=== PATIENT | female | born 1950 | race Caucasian/White ===

== ENCOUNTER 2022-01-22 22:03 | Inpatient (IN) | payer MEDICARE, MEDICAID ==
[~2022-01-22] VITALS: Ht 160 cm; Wt 49.9 kg
[2022-01-22] MEDS ORDERED: SODIUM CHLORIDE 0.9% 1,000 ML IV ONE (23:15)
[2022-01-22 23:49] LABS: HEMOGLOBIN. 7.7 g/dL (12.0-16.0); MEAN CORPUSCULAR HEMOGLOBIN 29.8 pg (28.0-32.0); PLATELET 79 x1000/uL (130-400); RED BLOOD CELL COUNT 2.59 mill/uL (4.2-5.4); RED CELL DISTRIBUTION WIDTH 17.6 % (11.6-14.6)
[2022-01-22 23:55] LABS: CHLORIDE 100 mEq/L (98-107)
[2022-01-22 23:57] LABS: INR 1.7; PROTHROMBIN TIME 17.7 sec (9.6-11.0)
[2022-01-23] VITALS (11 sets, daily range): BP systolic 70–93; BP diastolic 43–61
[2022-01-23] MEDS ORDERED: SODIUM CHLORIDE 0.9% 1,000 ML IV ONE
[2022-01-23] MEDS ORDERED: ACETAMINOPHEN 325MG TABLET PO ONE (00:15)
[2022-01-23] MEDS ORDERED: CEFTRIAXONE 1 G PREMIX 50 ML IV ONE (00:30)
[2022-01-23 00:56] LABS: PLATELET ESTIMATE DECREASED
[2022-01-23] MEDS ORDERED: IPRATROPIUM/ALBUTEROL 0.5-3(2.5)MG/3ML NEB HHN PRN (04:15)
[2022-01-23] MEDS ORDERED: ONDANSETRON HCL 4MG/2ML INJ IV PRN (04:15)
[2022-01-23] MEDS ORDERED: ALBUMIN HUMAN 25GM/100ML (25%) IV ONE (04:15)
[2022-01-23] MEDS ORDERED: ACETAMINOPHEN 650MG SUPP PR PRN (04:15)
[2022-01-23] MEDS ORDERED: SODIUM CHLORIDE 0.9% 250 ML IV ONE (04:15)
[2022-01-23] MEDS: LACTATED RINGERS 1,000 ML IV SCH ×3 (05:02→19:07)
[2022-01-23] MEDS: MIDODRINE HCL 5MG TABLET PO SCH ×5 (05:42→23:54)
[2022-01-23 08:07] LABS: MEAN CORPUSCULAR HEMOGLOBIN 29.4 pg (28.0-32.0); MEAN CORPUSCULAR VOLUME 90.1 fL (81.0-99.0); MEAN PLATELET VOLUME 9.6 fl (7.4-10.4); PLATELET 68 x1000/uL (130-400); RED BLOOD CELL COUNT 2.36 mill/uL (4.2-5.4); RED CELL DISTRIBUTION WIDTH 17.5 % (11.6-14.6)
[2022-01-23 08:15] LABS: HEMATOCRIT. 21.3 % (36.0-48.0); HEMOGLOBIN. 6.9 g/dL (12.0-16.0)
[2022-01-23 08:20] LABS: PHOSPHORUS 3.5 mg/dL (2.5-4.9)
[2022-01-23 08:41] LABS: PLATELET ESTIMATE DECREASED
[2022-01-23] MEDS ORDERED: CEFTRIAXONE 1 G PREMIX 50 ML IV SCH (09:15)
[2022-01-23 09:54] LABS: TOTAL IRON BINDING CAPACITY 80 ug/dL (250-450)
[2022-01-23] MEDS ORDERED: SODIUM BICARBONATE 8.4% 1 MEQ/ML 50ML SYR IV NR (10:00)
[2022-01-23] MEDS ORDERED: VANCOMYCIN 1.25GM PMX (XELLIA) 250 ML IV NR (11:00)
[2022-01-23] MEDS ORDERED: MAGNESIUM 2 G PREMIX 50 ML IV NR (11:00)
[2022-01-23] MEDS: PANTOPRAZOLE SODIUM 40 MG/VIAL IV SCH (12:18)
[2022-01-23 13:30] LABS: BG CARBOXYHEMOGLOBIN 0.1 % (0.5-1.5); BG FRACTION INSPIRED OXYGEN 21; BG HCO3 ACT 18.5 mmol/L (22.0-26.0); BG METHEMOGLOBIN 0.5 % (0.0-1.5); BG OXYHEMOGLOBIN 95.4 % (94.0-97.0); BG PH 7.439 (7.350-7.450); BG PO2 86.5 mmHg (75.0-100.0); BG SAMPLE SITE RIGHT BRACHIAL; BG TOTAL HEMOGLOBIN 7.2 g/dL (12.0-18.0); BG VENT MODE ROOM AIR
[2022-01-24] VITALS (7 sets, daily range): BP systolic 73–96; BP diastolic 42–57
[2022-01-24 03:15] LABS: CLARITY URINE TURBID (CLEAR); COLOR URINE YELLOW (YELLOW); KETONES URINE 1+ (NEGATIVE); LEUKOCYTE ESTERASE URINE 3+ (NEGATIVE); NITRITE URINE NEGATIVE (NEGATIVE); OCCULT BLOOD URINE TRACE (NEGATIVE); PROTEIN URINE 1+ (NEGATIVE); SPECIFIC GRAVITY URINE 1.018 (1.005-1.030); UROBILINOGEN URINE 0.2 E.U./dL (0.2-1.0)
[2022-01-24] MEDS: LACTATED RINGERS 1,000 ML IV SCH ×3 (05:49→15:07)
[2022-01-24] MEDS: CEFTRIAXONE 1,000 MG in DEXTROSE 5% WATER 50 ML IV SCH (05:50)
[2022-01-24] MEDS: MIDODRINE HCL 5MG TABLET PO SCH ×3 (05:50→17:25)
[2022-01-24] MEDS: PANTOPRAZOLE SODIUM 40 MG/VIAL IV SCH (10:08)
[2022-01-24 13:32] LABS: HEMATOCRIT. 34.2 % (36.0-48.0); MEAN CORPUSCULAR HEMOGLOBIN 29.7 pg (28.0-32.0); MEAN CORPUSCULAR VOLUME 92.7 fL (81.0-99.0); MEAN PLATELET VOLUME 9.3 fl (7.4-10.4); PLATELET 53 x1000/uL (130-400); RED BLOOD CELL COUNT 3.69 mill/uL (4.2-5.4); RED CELL DISTRIBUTION WIDTH 17.2 % (11.6-14.6)
[2022-01-24 13:43] LABS: CHLORIDE 109 mEq/L (98-107)
[2022-01-24 13:51] LABS: PHOSPHORUS 4.3 mg/dL (2.5-4.9)
[2022-01-24] MEDS ORDERED: SODIUM BICARBONATE 8.4% 1 MEQ/ML 50ML SYR IV NR (14:15)
[2022-01-24 14:18] LABS: NUCLEATED RED BLOOD CELLS 2 /100 WBC; PLATELET ESTIMATE MARKEDLY DECREASED
[2022-01-25] VITALS (7 sets, daily range): BP systolic 55–117; BP diastolic 30–90
[2022-01-25] MEDS: MIDODRINE HCL 5MG TABLET PO SCH ×4 (00:01→18:23)
[2022-01-25] MEDS: LACTATED RINGERS 1,000 ML IV SCH ×2 (00:02→18:20)
[2022-01-25] MEDS: CEFTRIAXONE 1,000 MG in DEXTROSE 5% WATER 50 ML IV SCH (06:27)
[2022-01-25] MEDS: PANTOPRAZOLE SODIUM 40 MG/VIAL IV SCH (09:07)
[2022-01-25 11:06] LABS: BG BASE EXCESS -6.3 mmol/L (-2.0-2.0); BG CARBOXYHEMOGLOBIN 0.3 % (0.5-1.5); BG DEOXYHEMOGLOBIN 14.1 % (0.0-5.0); BG FRACTION INSPIRED OXYGEN 21; BG HCO3 ACT 18.7 mmol/L (22.0-26.0); BG METHEMOGLOBIN 0.3 % (0.0-1.5); BG OXYGEN SATURATION 85.8 % (92.0-98.5); BG OXYHEMOGLOBIN 85.3 % (94.0-97.0); BG PCO2 35.3 mmHg (35.0-45.0); BG PH 7.343 (7.350-7.450); BG PO2 54.2 mmHg (75.0-100.0); BG SAMPLE SITE RIGHT BRACHIAL; BG TOTAL HEMOGLOBIN 10.1 g/dL (12.0-18.0); BG VENT MODE ROOM AIR
[2022-01-25 16:47] LABS: CHLORIDE 114 mEq/L (98-107)
[2022-01-25 16:53] LABS: BASOPHILS % 0.3 % (0.0-2.0); EOSINOPHILS % 1.7 % (0.0-5.0); HEMATOCRIT. 25.9 % (36.0-48.0); HEMOGLOBIN. 8.9 g/dL (12.0-16.0); LYMPHOCYTES % 22.7 % (20.0-50.0); MEAN CORPUSCULAR HEMOGLOBIN 29.9 pg (28.0-32.0); MEAN CORPUSCULAR VOLUME 87.1 fL (81.0-99.0); MEAN PLATELET VOLUME 10.1 fl (7.4-10.4); MONOCYTES % 1.8 % (2.0-8.0); NEUTROPHILS % 73.5 % (40.0-76.0); PHOSPHORUS 4.8 mg/dL (2.5-4.9); RED BLOOD CELL COUNT 2.97 mill/uL (4.2-5.4)
[2022-01-25 17:21] LABS: PLATELET 26 x1000/uL (130-400)
[2022-01-26] VITALS: BP 66/45
[2022-01-26] MEDS: MIDODRINE HCL 5MG TABLET PO SCH ×3 (00:22→06:21)
[2022-01-26 04:00] VITALS: BP 121/81
[2022-01-26] MEDS: LACTATED RINGERS 1,000 ML IV SCH (06:20)
[2022-01-26] MEDS: CEFTRIAXONE 1,000 MG in DEXTROSE 5% WATER 50 ML IV SCH (06:21)
[2022-01-26 07:56] LABS: HEMATOCRIT. 27.1 % (36.0-48.0); HEMOGLOBIN. 8.7 g/dL (12.0-16.0); MEAN CORPUSCULAR HEMOGLOBIN 30.1 pg (28.0-32.0); MEAN CORPUSCULAR VOLUME 93.5 fL (81.0-99.0); MEAN PLATELET VOLUME 9.5 fl (7.4-10.4); RED CELL DISTRIBUTION WIDTH 17.4 % (11.6-14.6)
[2022-01-26 08:00] VITALS: BP 48/21
[2022-01-26 08:09] LABS: CHLORIDE 116 mEq/L (98-107)
[2022-01-26 08:15] LABS: PHOSPHORUS 5.9 mg/dL (2.5-4.9)
[2022-01-26] MEDS: PANTOPRAZOLE SODIUM 40 MG/VIAL IV SCH (08:37)
[2022-01-26] MEDS ORDERED: LORAZEPAM 2MG/ML CPJ IV PRN (09:45)
[2022-01-26] MEDS ORDERED: MORPHINE SULFATE 2 MG/ML CPJ (NOT FOR IM USE) IV PRN (09:45)
[2022-01-26] MEDS ORDERED: NALOXONE HCL 0.4MG/ML VIAL IV PRN (10:00)
[2022-01-26 10:06] LABS: INR 1.9
[2022-01-26 15:32] LABS: PLATELET ESTIMATE MARKEDLY DECREASED
[2022-01-26 15:33] LABS: PLATELET 25 x1000/uL (130-400)
[2022-01-27 13:22] LABS: PLATELET ESTIMATE MARKEDLY DECREASED
== END 2022-01-26 13:55 | DRG 871 ==
LOC: ER 22:03 → 8WST 01-23 01:15 → EDBEDREQTM 01-23 01:20 → EDBEDREQDT 01-23 01:20 → EDBEDREQ 01-23 01:20 → ENRESERV 01-23 08:09
PROVIDERS: ADMIT Internal Medicine; ATTEND Internal Medicine
PROC: 30233N1 Transfusion of Nonautologous Red Blood Cells into Peripheral Vein, Percutaneous Approach (ICD-10-PCS; 2022-01-23)
PROC: 30233R1 Transfusion of Nonautologous Platelets into Peripheral Vein, Percutaneous Approach (ICD-10-PCS; principal; 2022-01-25)
DX: A41.50 Gram-negative sepsis, unspecified (principal); E43 Unspecified severe protein-calorie malnutrition; L89.154 Pressure ulcer of sacral region, stage 4; J18.9 Pneumonia, unspecified organism; R65.21 Severe sepsis with septic shock; D68.9 Coagulation defect, unspecified; E87.2 Acidosis; J90 Pleural effusion, not elsewhere classified; N17.9 Acute kidney failure, unspecified; E87.1 Hypo-osmolality and hyponatremia; Z68.1 Body mass index [BMI] 19.9 or less, adult; N39.0 Urinary tract infection, site not specified; D64.9 Anemia, unspecified; D69.6 Thrombocytopenia, unspecified; E83.42 Hypomagnesemia; E86.0 Dehydration; F03.90 Unspecified dementia, unspecified severity, without behavioral disturbance, psychotic disturbance, mood disturbance, and anxiety; F32.A Depression, unspecified; F41.9 Anxiety disorder, unspecified; L98.429 Non-pressure chronic ulcer of back with unspecified severity; Z66 Do not resuscitate; M54.50 Low back pain, unspecified; K21.9 Gastro-esophageal reflux disease without esophagitis; M41.9 Scoliosis, unspecified; Z86.16 Personal history of COVID-19; Z87.01 Personal history of pneumonia (recurrent); Z88.8 Allergy status to other drugs, medicaments and biological substances; Z79.899 Other long term (current) drug therapy; Z51.5 Encounter for palliative care; K52.9 Noninfective gastroenteritis and colitis, unspecified
CPT/HCPCS: 36415; 36600; 71045; 74018; 76770; 80048; 80053; 80202; 81003; 82375; 82805; 83540; 83550; 83605; 83735; 84100; 84134; 84145; 84484; 85025; 85384; 86850; 86900; 86920; 87077; 87186; 99285; C1893; C9113; J0696; J3370; J3475; J3490; J7030; J7060; J7120; P9016; P9034